=== PATIENT | male | born 1965 | race Hispanic/Latino ===

== ENCOUNTER → 2017-03-20 | Outpatient (CLI) | payer OTHER ==
[~2017-03-20] MED LIST: CETI10CA5 PO; LISI1TAB11 PO; MELO-108 PO; METF500T6 PO; SIMV20TA6 PO
== END ==
LOC: OIH 14:59
PROVIDERS: ATTEND Family Medicine
DX: Z13.6 Encounter for screening for cardiovascular disorders (principal)
CPT/HCPCS: 75571